=== PATIENT | male | born 1975 | race Asian ===

== ENCOUNTER → 2017-05-14 | Outpatient (CLI) | payer BC ==
--- NOTE | 2017-05-14 11:08 | RADIOLOGY REPORT (SQ) ---
EXAM DESCRIPTION: ANKLE RIGHT COMPLETE COMPLETED DATE/TIME: 05/14/2017 9:44 am REASON FOR STUDY: PERSONAL HISTORY OF OTH (HEALED) PHYSICAL INJURY AND TRAUMA Z87.828 PERSONAL HIST ORY OF OTH (HEALED) PHYSICAL INJURY AND COMPARISON: None. NUMBER OF VIEWS: Three views. TECHNIQUE: AP, lateral, and oblique radiographic images acquired of the right ankle. LIMITATIONS: None. FINDINGS: MINERALIZATION: Normal. BONES: No acute fracture or dislocation. No worrisome bone lesions. JOINTS: No effusions. SOFT TISSUES: There is mild soft tissue swelling. No foreign body. OTHER: No other significant finding. IMPRESSION: Mild soft tissue swelling no fracture. TECHNICAL DOCUMENTATION: JOB ID: [id number] [employer]- All Rights Reserved
== END ==
LOC: OD 09:10
PROVIDERS: ATTEND Obstetrics & Gynecology
DX: M25.471 Effusion, right ankle (principal)
CPT/HCPCS: 36415; 85379

== ENCOUNTER → 2018-11-18 | Outpatient (CLI) | payer BC ==
--- NOTE | 2018-11-18 11:13 | RADIOLOGY REPORT (SQ) ---
EXAM DESCRIPTION: NM HIDA SCAN WITH CCK COMPLETED DATE/TIME: 11/18/2018 10:56 am REASON FOR STUDY: K82.8 OTHER SPECIFIED DISEASES OF GALLBLADDER K82.8 OTHER SPECIFIED DISEASES OF G ALLBLADDER COMPARISON: Right upper quadrant ultrasound 11/04/2018, [facility] RADIONUCLIDE AND DOSE: DOSAGE RADIONUCLIDE: 5.4 millicuries Tc99m Mebrofenin. DOSAGE CCK: 1.7 micrograms. DOSAGE MORPHINE: Not required. The route of agent administration: Intravenous TECHNIQUE: Serial imaging right upper quadrant up to 60 minutes following injection of radionuclide. CCK injected after gallbladder visualized. LIMITATIONS: None. FINDINGS: LIVER: Normal visualization INTRAHEPATIC BILE DUCTS: Normal visualization COMMON BILE DUCT: Normal visualization GALLBLADDER: Normal visualization. Calculated ejection fraction of 16%. Normal range is greater th an 35%. PHYSICAL RESPONSE: Patients presenting complaint did not reproduced. OTHER: No other significant finding. IMPRESSION: No scintigraphic evidence of cystic duct or common duct obstruction. IV CCK resulted in a depressed gallbladder ejection fraction. However, this did not reproduce the pa tient's symptoms. TECHNICAL DOCUMENTATION: JOB ID: [id number] [employer]- All Rights Reserved Reading location - IP/workstation name: [email or web address]
== END ==
LOC: RAD 07:48
PROVIDERS: ATTEND Obstetrics & Gynecology
DX: K82.8 Other specified diseases of gallbladder (principal)
CPT/HCPCS: 78227; J2805; A9537; Q9969